=== PATIENT | female | born 2005 | race Caucasian/White ===

== ENCOUNTER 2024-11-01 14:38 | Observation (INO) | payer BC ==
[2024-11-01] MEDS ORDERED: NA CHLORIDE 0.9% 1,000 ML ONE (15:17)
[2024-11-01] MEDS ORDERED: DIPHENHYDRAMINE 50 MG/ML VIAL ONE (15:17)
[2024-11-01] MEDS ORDERED: METOCLOPRAMIDE 10 MG/2mL INJ ONE (15:17)
[2024-11-01] MEDS ORDERED: KETOROLAC 30 MG/ML INJ ONE (15:17)
[2024-11-01 15:23] LABS: Absolute Lymphocytes (CBC) 0.6 K/uL (0.7-4.9); Absolute Monocytes 1.1 K/uL (0.1-1.3); Absolute Neutrophil 20.7 K/uL (1.8-8.0); Basophils % 0.2 % (0-1.3); Hematocrit 48.6 % (36.0-45.0); Lymphocytes % 2.5 % (15.3-44.8); MCH 28.5 pg (27.0-35.0); MCHC 32.8 g/dL (32.0-36.0); MCV 86.8 fL (80-100); MPV 8.7 fL (7.6-11.3); Monocytes % 5.1 % (3.3-12.3); Neutrophils % 92.2 % (41.7-73.7); Platelets 346 thou/uL (152-406); Red Cell Distribution Width 12.9 % (12.1-15.2)
[2024-11-01 15:38] LABS: Albumin 4.3 g/dL (3.4-5.0); Albumin/Globulin Ratio 1.2 (1.1-1.8); Anion Gap 11.8 mEq/L (5.0-15.0); Bilirubin Direct 0.2 mg/dL (0-0.2); Bilirubin Indirect, Calculated 0.4 mg/dL (0.2-0.8); Bilirubin Total 0.6 mg/dL (0.2-1.0); Globulin 3.7 g/dL (2.3-3.5); Magnesium 1.9 mg/dL (1.6-2.4); Potassium 3.8 mEq/L (3.5-5.1)
[2024-11-01 15:42] LABS: Specific Gravity 1.032 (1.005-1.030)
[2024-11-01 15:44] LABS: Specific Gravity > 1.030 (1.005-1.030); Transitional Epithelial <5 /HPF (None Seen); Urine Bacteria None Seen /HPF (<20); Urine Bilirubin NEGATIVE (Negative); Urine Blood Negative (Negative); Urine Clarity Extremely Turbid (Clear); Urine Color Yellow (Yellow); Urine Culture Reflex Order NOT NEEDED; Urine Glucose NEGATIVE (Negative); Urine Ketones 1+ (Negative); Urine Microscopic Reflex YN ORDER UMIC; Urine Mucus 4+ /HPF (None Seen); Urine Nitrite NEGATIVE (Negative); Urine Protein 1+ (Negative); Urine RBC <5 /HPF (None Seen); Urine Urobilinogen Normal (Normal); Urine WBC <5 /HPF (<5)
[2024-11-01 15:57] LABS: Monoscreen NEG (NEG)
[2024-11-01 16:01] LABS: Barbiturates NEGATIVE (NEGATIVE); Benzodiazepines NEGATIVE (NEGATIVE); Cocaine NEGATIVE (NEGATIVE); METHAMPHETAM NEGATIVE (NEGATIVE); Methadone NEGATIVE (NEGATIVE); Opiates NEGATIVE (NEGATIVE); Phencyclidine NEGATIVE (NEGATIVE); THC Cannibis POSITIVE (NEGATIVE)
[2024-11-01 16:16] LABS: Band Neutrophils 4 % (0-1); Blood Morphology Comment NOT SEEN (NOT SEEN); Differential Total Cells Count 100; Lymphocytes 2 % (15-42); Monocytes 6 % (0-10); Platelet Estimate ADEQ; Segmented Neutrophils 88 % (40-80)
--- NOTE | 2024-11-01 16:16 | RAD REPORT ---
EXAMINATION: CT HEAD WITHOUT CONTRAST CLINICAL INDICATION: Female, 18 years old.headache;Dizziness TECHNIQUE: Axial CT images from the skull base to the vertex without intravenous contrast. Coronal an d sagittal reformatted images were created from the data set. One or more of the following dose reduction techniques were used: Automated exposure control, adjustment of the mA and/or kV according to patient size, and/or iterative reconstruction. Unless otherwise specified, incidental findings do not require dedicated imaging follow-up. [id number]. COMPARISON: No prior exam. FINDINGS: INTRACRANIAL: No acute intracranial hemorrhage. No hydrocephalus. No mass effect or midline shift. No significant white matter disease VASCULATURE: No visualized abnormalities in the arteries or dural venous sinuses. SCALP/SKULL: No significant soft tissue or osseous abnormalities. SINUSES: The visualized paranasal sinuses and mastoid air cells are predominantly clear. IMPRESSION: No acute intracranial abnormality.
--- NOTE | 2024-11-01 16:18 | RAD REPORT ---
EXAMINATION: CTA HEAD CLINICAL INDICATION: Female, 18 years old. headache, dizziness, vomiting TECHNIQUE: Axial CT images were obtained through the head after intravenous contrast utilizing angiog raphic protocol with 3D post-processing (maximum intensity projection images, volume rendered images and/or shaded surface rendered images). One or more of the following dose reduction technique s were used: Automated exposure control, adjustment of the mA and/or kV according to patient size, and/or iterative reconstruction. Unless otherwise specified, incidental findings do not require dedic ated imaging follow-up. COMPARISON: No prior exam. FINDINGS: ICA: The petrous, cavernous, and supraclinoid segments of the bilateral internal carotid arteries are normal. The ophthalmic artery origins are visualized and normal. The posterior communicating arteries are patent. ROCKY: Anterior cerebral arteries are normal bilaterally. The anterior communicating artery is patent. MCA: Middle cerebral arteries are normal bilaterally. PAPER RULER: Posterior cerebral arteries are normal bilaterally. Vertebrobasilar: The vertebral arteries are patent. The basilar artery is normal in appearance. 3D images confirm these findings. IMPRESSION: No occlusion, aneurysm, or hemodynamically significant stenosis identified.
[2024-11-01] MEDS ORDERED: ONDANSETRON 4 MG/2 ML VIAL ONE (18:10)
[2024-11-01 18:25] LABS: Appearance CLEAR (CLEAR); Body Fluid Source CSF; CSF Glucose 69 mg/dL (40-70); Color of Supernate Not Xanthochromic (Not Xantho); Color of fluid Colorless (COLORLESS); Tube # #2
[2024-11-01 18:26] LABS: Body Fluid WBC 1 /mm^3
[2024-11-01 18:50] LABS: Appearance CLEAR (CLEAR); Body Fluid Source CSF; Body Fluid WBC 0 /mm^3; Color of Supernate Not Xanthochromic (Not Xantho); Color of fluid Colorless (COLORLESS); Fluid Total Volume 7.5 ml; Tube # #3
--- NOTE | 2024-11-01 18:50 | EDPHYS ---
Physician Documentation [facility] Name: Clair Arita Age: 18 yrs Sex: Female : 2005 Arrival Date: 11/01/2024 Time: 14:38 Bed 6 Private MD: ED Physician Guillermo Cerrato HPI: 11/01 16:14 This 18 yrs old Female presents to ER via Ambulatory with complaints of Head pressure, sb4 Vomiting. 16:35 patient reports a headache for 3 days now. states it's worse when she stands up, better sb4 when laying down. states the pain feels like it's on the top of her head and radiates all around. she went to a freestanding ED last night, had a head CT, chest xray, EKG, viral swabs, and UPT- all negative. she was given a shot of toradol and decadron but states it did not help. she says that today her pain has persisted and now she has started experiencing nausea, vomiting, and dizziness. 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 - Infectious Disease History:: Denies. - Social history:: Smoking status: Reported history of juuling and/or vaping. ROS: 18:10 Constitutional: Negative for fever, chills, and weight loss, sb4 18:10 Abdomen/GI: Positive for nausea and vomiting, 18:10 Neuro: Positive for dizziness, headache, near syncope, 18:10 All other systems are negative, Exam: 18:10 Constitutional: This is a well developed, well nourished patient who is awake, alert, sb4 and in no acute distress. Head/Face: Normocephalic, atraumatic. Eyes: Extra-ocular motions intact. Periorbital areas with no swelling, redness, or edema. ENT: Mucous membranes moist. Cardiovascular: Regular rate and rhythm with a normal S1 and S2. Respiratory: No increased work of breathing, no retractions or nasal flaring. Abdomen/GI: Soft, non-tender, no distension. Neuro: Awake and alert, GCS 15, oriented to person, place, time, and situation. Motor strength 5/5 in all extremities. Sensory grossly intact. Vital Signs: 14:44 BP 133 / 91; Pulse 115; Resp 17; Temp 97.5(TE); Pulse Ox 98% on R/A; MAP 103 mmHg; tm6 Weight 47.63 kg; Height 5 ft. 4 in. ; Pain 8/10; 16:00 BP 121 / 77; Pulse 91; Resp 17; Pulse Ox 100% ; jj7 16:15 BP 119 / 79 Supine; Pulse 95; Resp 17; Pulse Ox 100% ; Pain 4/10; jj7 16:18 BP 124 / 85 Sitting; Pulse 99; Resp 18; Pulse Ox 100% ; jj7 16:20 BP 130 / 88 Standing; Pulse 101; Resp 20; Pulse Ox 100% ; jj7 17:22 BP 142 / 102; Pulse 96; Resp 17; Pulse Ox 100% on R/A; jj7 19:30 BP 125 / 82; Pulse 90; Resp 20; Temp 98.9; Pulse Ox 98% ; Pain 5/10; bm8 14:44 Body Mass Index 18.02 (47.63 kg, 162.56 cm) tm6 14:44 Pain Scale: Adult tm6 16:15 Pain Scale: Adult jj7 19:30 Pain Scale: Adult bm8 [place] Coma Score: 19:30 Eye Response: spontaneous(4). Motor Response: obeys commands(6). Verbal Response: bm8 oriented(5). Total: 15. Procedures: 17:46 Lumbar Puncture: Patient placed in left lateral decubitus position. Prepped with rn Betadine. Draped using sterile technique. Collected 8 ml's of clear fluid. Sample sent to lab. Puncture site dressed with band aid, Patient tolerated well. Opening pressure normal, is 10. MDM: 14:50 Medical Screening Exam initiated sb4 17:47 ED course: Patient consented for LP, stepmother in the room as well. Tolerated shift supervisor rn well, clear fluid, sent to lab. 18:50 Data reviewed: vital signs, nurses notes, lab test result(s), radiologic studies, I sb4 have discussed the patient's presentation/case with the attending Emergency Department Physician; and as a result, I will admit patient. Counseling: I had a detailed discussion with the patient and/or guardian regarding the historical points, exam findings, and any diagnostic results supporting the discharge/admit diagnosis, the presence of at least one elevated blood pressure reading (>120/80) during this emergency department visit, lab results, radiology results, the need for further work-up and treatment in the hospital. 11/01 15:07 Order name: Basic Metabolic Panel; Complete Time: 15:39 sb4 11/01 15:07 Order name: CBC with Diff; Complete Time: 16:17 sb4 11/01 15:07 Order name: Hepatic Function; Complete Time: 15:39 sb4 11/01 15:07 Order name: Magnesium; Complete Time: 15:39 sb4 11/01 15:07 Order name: UDS; Complete Time: 16:06 sb4 11/01 15:07 Order name: Urinalysis w/ reflexes; Complete Time: 15:49 sb4 11/01 15:07 Order name: [place] Screen Profile; Complete Time: 16:06 4 11/01 15:26 Order name: Test, Urine; Complete Time: 15:44 sb4 11/01 16:17 Order name: Manual Differential; Complete Time: 16:17 EDMS 11/01 17:50 Order name: Csf Culture [facility] 11/01 17:50 Order name: Fluid Cell Count,Body; Complete Time: 18:27 sb4 11/01 17:50 Order name: Spinal Fluid Profile; Complete Time: 18:51 sb4 11/01 18:50 Order name: Blood Culture Adult (2) [facility] 11/01 18:50 Order name: Lactate w/ 2H reflex if indic.; Complete Time: 08:33 sb4 11/01 18:50 Order name: CRP; Complete Time: 08:33 sb4 11/01 19:25 Order name: CBC with Automated Diff; Complete Time: 08:33 EDMS 11/01 19:25 Order name: Comprehensive Metabolic Panel; Complete Time: 08:33 EDMS 11/01 15:07 Order name: CT Head Brain wo Cont; Complete Time: 16:17 sb4 11/01 15:07 Order name: Head Angio CT; Complete Time: 16:18 sb4 11/01 15:07 Order name: Cardiac monitoring; Complete Time: 16:29 sb4 11/01 15:07 Order name: IV Saline Lock; Complete Time: 15:11 sb4 11/01 15:07 Order name: Labs collected and sent; Complete Time: 15:11 sb4 11/01 15:07 Order name: O2 Per Protocol; Complete Time: 15:11 sb4 11/01 15:07 Order name: O2 Sat Monitoring; Complete Time: 15:11 sb4 11/01 15:07 Order name: Orthostatics; Complete Time: 16:29 sb4 Administered Medications: 15:22 Drug: metoCLOPramide IVP 10 mg IVP once; over 1 to 2 minutes Route: IVP; Site: left [facility] antecubital; 16:28 Follow up: Response: Marked relief of symptoms jj7 15:30 Drug: NS 0.9% IV 1000 ml IV at 1 bolus Per protocol; to be given as a bolus over 60 jj7 minutes Route: IV; Rate: 1 bolus; Site: left antecubital; 21:02 Follow up: Response: No adverse reaction; IV Status: Completed infusion; IV Intake: bm8 1000ml 15:30 Drug: Ketorolac IVP 15 mg IVP once Route: IVP; Site: left antecubital; jj7 16:28 Follow up: Response: Marked relief of symptoms jj7 15:30 Drug: diphenhydrAMINE IVP 25 mg IVP once Route: IVP; Site: left antecubital; jj7 16:28 Follow up: Response: Marked relief of symptoms jj7 18:13 Drug: Ondansetron IVP 4 mg IVP once; over 2 minutes Route: IVP; Site: left antecubital; jj7 21:02 Follow up: Response: No adverse reaction bm8 Disposition: 11/02 07:06 Co-signature as Attending Physician, Guillermo Cerrato MD I reviewed the patient's care rn provided by the Advanced Practice Provider and agree with the diagnosis and treatment plan. Disposition Summary: 11/01/24 18:49 Hospitalization Ordered Notes: Hospitalization Status: Observation sb4 Provider: Jack Govea Location: Telemetry/MedSur (observation) sb4 Condition: Fair sb4 Problem: new sb4 Symptoms: are unchanged sb4 Bed/Room Type: Standard sb4 Room Assignment: 210(11/01/24 19:33) lg3 Diagnosis - Migraine without aura, intractable, with status migrainosus sb4 - Elevated white blood cell count sb4 Forms: - Medication Reconciliation Form sb4 - SBAR form sb4 - Leadership Thank You Letter sb4 Signatures: Dispatcher [employer] EDGuillermo Crockett MD MD rn Able, Lacie, RN RN lg3 Dima Pandya RN RN jj7 Elma Lynn, PACoronaC PADanny sb4 Raul Roche RN RN tm6 Tai Riddle RN bm8 Corrections: (The following items were deleted from the chart) 11/01 17:47 17:46 Lumbar Puncture: Patient placed in left lateral decubitus position. Prepped with rn Betadine. Draped using sterile technique. Collected 8 ml's of clear fluid. Sample sent to lab. Puncture site dressed with band aid, Patient tolerated well. rn 17:50 17:50 CSF Culture+BA.LAB.BRZ ordered. EDMS EDMS 17:50 17:50 FLUID CELL COUNT,BODY+H.LAB.BRZ ordered. EDMS EDMS 17:50 17:50 SPINAL FLUID PROFILE+LAB.LAB.BRZ ordered. EDMS EDMS 19:33 18:49 sb4 lg3
--- NOTE | 2024-11-01 18:50 | ER ---
Nurse's Notes [facility] Name: Clair Arita Age: 18 yrs Sex: Female : 2005 Arrival Date: 11/01/2024 Time: 14:38 Bed 6 Private MD: Diagnosis: Migraine without aura, intractable, with status migrainosus;Elevated white blood cell count Presentation: 11/01 14:46 Chief complaint: Patient states: headache x3 days. Went to [facility] yesterday. N/V tm6 started today. When I stand up for long periods of time I start to black out. Coronavirus screen: Client denies travel out of the [place] in the last 14 days. Ebola Screen: Patient negative for fever greater than or equal to 101.5 degrees Fahrenheit, and additional compatible Ebola Virus Disease symptoms Patient denies exposure to infectious person. Patient denies travel to an Ebola-affected area in the 21 days before illness onset. No symptoms or risks identified at this time. Initial Sepsis Screen: Does the patient meet any 2 criteria? HR > 90 bpm. Does the patient have a suspected source of infection? No. Patient's initial sepsis screen is negative. Risk Assessment: Do you want to hurt yourself or someone else? Patient reports no desire to harm self or others. Onset of symptoms was October 29, 2024. 14:46 Method Of Arrival: Ambulatory tm6 14:46 Acuity: CHRISTIN 3 tm6 Triage Assessment: 14:46 General: Appears in no apparent distress. Behavior is calm, cooperative. Pain: tm6 Complains of pain in head Pain currently is 8 out of 10 on a pain scale. Pain began 2-3 days ago. EENT: No signs and/or symptoms were reported regarding the EENT system. Neuro: Level of Consciousness is awake, alert, obeys commands, Oriented to person, place, time, situation, Reports headache x3 days. Neuro: Reports near syncope. Cardiovascular: Patient's skin is warm and dry. Respiratory: Airway is patent Respiratory effort is even, unlabored, Respiratory pattern is regular, symmetrical. GI: Reports nausea, vomiting, since today. : No signs and/or symptoms were reported regarding the genitourinary system. Derm: No signs and/or symptoms reported regarding the dermatologic system. Musculoskeletal: No signs and/or symptoms reported regarding the musculoskeletal system. 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 - Infectious Disease History:: Denies. - Social history:: Smoking status: Reported history of juuling and/or vaping. Screenin:05 [facility] ED Fall Risk Assessment (Adult) History of falling in the last 3 months, jj7 including since admission No falls in past 3 months (0 pts) Confusion or Disorientation No (0 pts) Intoxicated or Sedated No (0 pts) Impaired Gait No (0 pts) Mobility Assist Device Used No (0 pt) Altered Elimination No (0 pt) Score/Fall Risk Level 0 - 2 = Low Risk Oriented to surroundings, Maintained a safe environment, Educated pt \T\ family on fall prevention, incl call for assistance when getting out of bed, Assessed \T\ reinforced patient's understanding of fall precautions. Abuse screen: Denies threats or abuse. Nutritional screening: No deficits noted. Tuberculosis screening: No symptoms or risk factors identified. Assessment: 15:05 General: Appears in no apparent distress. comfortable, Behavior is calm, cooperative, jj7 appropriate for age. Neuro: Reports dizziness, headache TOP OF HEAD. GI: Reports nausea, vomiting. GI: Abd is soft and non tender X 4 quads. 19:30 Reassessment: Patient appears in no apparent distress at this time. Patient and/or bm8 family updated on plan of care and expected duration. Pain level reassessed. Patient is alert, oriented x 3, equal unlabored respirations, skin warm/dry/pink. Patient states feeling better. Patient states symptoms have improved. Neuro: Level of Consciousness is awake, alert, obeys commands, Oriented to person, place, time, situation, Appropriate for age Reports headache. Cardiovascular: Denies chest pain, Capillary refill < 3 seconds in bilateral fingers Patient's skin is warm and dry. Respiratory: Airway is patent Respiratory effort is even, unlabored, Respiratory pattern is regular, symmetrical. GI: No deficits noted. No signs and/or symptoms were reported involving the gastrointestinal system. GI: No signs and/or symptoms were reported involving the gastrointestinal system. : No signs and/or symptoms were reported regarding the genitourinary system. EENT: No signs and/or symptoms were reported regarding the EENT system. Derm: No signs and/or symptoms reported regarding the dermatologic system. Musculoskeletal: No signs and/or symptoms reported regarding the musculoskeletal system. Vital Signs: 14:44 BP 133 / 91; Pulse 115; Resp 17; Temp 97.5(TE); Pulse Ox 98% on R/A; MAP 103 mmHg; tm6 Weight 47.63 kg; Height 5 ft. 4 in. ; Pain 8/10; 16:00 BP 121 / 77; Pulse 91; Resp 17; Pulse Ox 100% ; jj7 16:15 BP 119 / 79 Supine; Pulse 95; Resp 17; Pulse Ox 100% ; Pain 4/10; jj7 16:18 BP 124 / 85 Sitting; Pulse 99; Resp 18; Pulse Ox 100% ; jj7 16:20 BP 130 / 88 Standing; Pulse 101; Resp 20; Pulse Ox 100% ; jj7 17:22 BP 142 / 102; Pulse 96; Resp 17; Pulse Ox 100% on R/A; jj7 19:30 BP 125 / 82; Pulse 90; Resp 20; Temp 98.9; Pulse Ox 98% ; Pain 5/10; bm8 14:44 Body Mass Index 18.02 (47.63 kg, 162.56 cm) tm6 14:44 Pain Scale: Adult tm6 16:15 Pain Scale: Adult jj7 19:30 Pain Scale: Adult bm8 [place] Coma Score: 19:30 Eye Response: spontaneous(4). Motor Response: obeys commands(6). Verbal Response: bm8 oriented(5). Total: 15. ED Course: 14:40 Patient arrived in ED. mr 14:41 Elma Lynn PA-C is PHCP. sb4 14:41 Guillermo Cerrato MD is Attending Physician. sb4 14:46 Arm band placed on right wrist. tm6 14:48 Triage completed. tm6 15:04 Inserted saline lock: 20 gauge in left antecubital area, using aseptic technique. Blood jj7 collected. Flushed with 10 mL NS. 15:05 Patient has correct armband on for positive identification. Bed in low position. Call jj7 light in reach. Adult w/ patient. Provided Education on: USE OF CALL GANT. 15:08 Jonny Thurman, RN is Primary Nurse. bp 15:11 Basic Metabolic Panel Sent. jj7 15:11 CBC with Diff Sent. jj7 15:11 Hepatic Function Sent. jj7 15:11 Magnesium Sent. jj7 15:31 UDS Sent. jj7 15:31 Urinalysis w/ reflexes Sent. jj7 16:09 CT Head Brain wo Cont In Process Unspecified. EDMS 16:[address] In Process Unspecified. EDMS 17:21 Assist provider with lumbar puncture: Set up LP tray. jj7 17:38 Assist provider with lumbar puncture: Performed by Guillermo Cerrato MD. jj7 18:06 Fluid Cell Count,Body Sent. jj7 18:06 Spinal Fluid Profile Sent. jj7 18:49 Jack Govea MD is Hospitalizing Provider. sb4 19:09 Report given to ADEBAYO RECINOS. jj7 19:30 Provided Education on: need for admission. bm8 19:30 Patient admitted, IV remains in place. bm8 Administered Medications: 15:22 Drug: metoCLOPramide IVP 10 mg IVP once; over 1 to 2 minutes Route: IVP; Site: left [facility] antecubital; 16:28 Follow up: Response: Marked relief of symptoms jj7 15:30 Drug: NS 0.9% IV 1000 ml IV at 1 bolus Per protocol; to be given as a bolus over 60 jj7 minutes Route: IV; Rate: 1 bolus; Site: left antecubital; 21:02 Follow up: Response: No adverse reaction; IV Status: Completed infusion; IV Intake: bm8 1000ml 15:30 Drug: Ketorolac IVP 15 mg IVP once Route: IVP; Site: left antecubital; jj7 16:28 Follow up: Response: Marked relief of symptoms jj7 15:30 Drug: diphenhydrAMINE IVP 25 mg IVP once Route: IVP; Site: left antecubital; jj7 16:28 Follow up: Response: Marked relief of symptoms jj7 18:13 Drug: Ondansetron IVP 4 mg IVP once; over 2 minutes Route: IVP; Site: left antecubital; jj7 21:02 Follow up: Response: No adverse reaction bm8 Medication: 15:05 VIS not applicable for this client. jj7 Intake: 21:02 IV: 1000ml; Total: 1000ml. bm8 Outcome: 18:49 Decision to Hospitalize by Provider. sb4 19:30 Admitted to Med/surg accompanied by nurse, via stretcher, room 210, bm8 19:30 Condition: stable 19:30 Instructed on the need for admit, Demonstrated understanding of instructions, follow-up care, 21:16 Patient left the ED. bm8 Signatures: Dispatcher [employer] EDMS PalaciosAlison lopes, Reg Reg mr ThurmanJonny, RN RN Dima Caraballo RN RN jElma Sawyer PA-Jude PA-Raul Silva, RN RN tm6 Tai Riddle, RN RN bm8 Corrections: (The following items were deleted from the chart) 16:30 16:00 BP 119 / 79; Pulse 95bpm; Resp 17bpm; Pulse Ox 100%; jj7 jjAna
[2024-11-01] MEDS ORDERED: ACETAMINOPHEN 500 MG TAB PO PRN (19:21)
--- NOTE | 2024-11-01 19:32 | P.HP ---
Certification for Inpatient Patient admitted to: Observation With expected LOS: <2 Midnights Practitioner: I am a practitioner with admitting privileges, knowledge of patient current condition, hospital course, and medical plan of care. Services: Services provided to patient in accordance with Admission requirements found in Title 42 Section 412.3 of the Code of Federal Regulations Patient History Date of Service: 11/01/24 Reason for admission: Nausea vomiting History of Present Illness: Patient is 18 years of age has been complaining of this back pressure in her head worse with standing up when she lies down and apparently she also passed out having some black spots and has been complaining of vomiting has been going on for the past 3 days got worse today he was treated with some steroids prior history of headaches or migraines is any fever chills - Past Medical/Surgical History Past Medical History: Reviewed- Non-Contributory Review of Systems 10-point ROS is otherwise unremarkable Physical Examination - Vital Signs Temperature: 97 F Blood Pressure: 133/91 Pulse: 115 Respirations: 17 Pulse Ox (%): 28 - Physical Exam General: Alert, In no apparent distress, Oriented x3 HEENT: Atraumatic Neck: Supple Respiratory: Clear to auscultation bilaterally Cardiovascular: No edema, Regular rate/rhythm, Normal S1 S2 Gastrointestinal: Normal bowel sounds, Soft and benign Musculoskeletal: No clubbing, No swelling Neurological: Normal speech, Normal strength at 5/5 x4 extr, Cranial nerves 3-12 intact - Studies Laboratory Data (last 24 hrs) 11/01/24 11/01/24 15:04 15:04 WBC 22.40 H Hgb 16.0 H Hct 48.6 H Plt Count 346 Sodium 140 Potassium 3.8 BUN 17 Creatinine 0.79 Glucose 109 H Magnesium 1.9 Total Bilirubin 0.6 AST 13 L ALT 17 Alkaline Phosphatase 53 Assessment and Plan - Problems (Diagnosis) (1) Nausea and vomiting Current Visit: Yes Status: Acute Plan: Patient is 18 years of age admitted with acute with headaches for the past 3 days nausea vomiting THC is positive she underwent lumbar puncture that was negative for infection history of any fever or sepsis signs all stable no prior history of migraine count is mildly elevated hemoglobin is also increased may be from her nausea and vomiting dehydration possible that she has marijuana toxicity to admit IV fluids meant of nausea and headaches stable discharge tomorrow Qualifiers: Vomiting type: unspecified Qualified Code(s): R11.2 - Nausea with vomiting, unspecified - Advance Directives Does patient have a Living Will: No Does patient have a Durable POA for Healthcare: No
[2024-11-01] MEDS: ACETAMIN/CAFFEINE/BUTALB TAB PO PRN (22:59)
[2024-11-01] MEDS: NA CHLORIDE 0.9% 1,000 ML IV SCH (23:14)
[2024-11-01 23:30] VITALS: O2SAT 98
[2024-11-02 05:40] LABS: Absolute Lymphocytes (CBC) 1.3 K/uL (0.7-4.9); Absolute Monocytes 0.8 K/uL (0.1-1.3); Absolute Neutrophil 6.4 K/uL (1.8-8.0); Basophils % 0.2 % (0-1.3); Eosinophils % 0.2 % (0-4.4); Hematocrit 38.4 % (36.0-45.0); Hemoglobin 13.2 g/dL (12.0-15.0); Lymphocytes % 14.7 % (15.3-44.8); MCH 29.5 pg (27.0-35.0); MCHC 34.4 g/dL (32.0-36.0); MCV 85.9 fL (80-100); MPV 8.5 fL (7.6-11.3); Monocytes % 9.5 % (3.3-12.3); Neutrophils % 75.4 % (41.7-73.7); Platelets 236 thou/uL (152-406); RBC Red Blood Cell Count 4.47 M/uL (3.86-4.86); Red Cell Distribution Width 12.4 % (12.1-15.2)
[2024-11-02 06:11] LABS: Albumin 2.9 g/dL (3.4-5.0); Alkaline Phosphatase 39 U/L (45-117); Anion Gap 7.2 mEq/L (5.0-15.0); BUN Blood Urea Nitrogen 16 mg/dL (7-18); Bicarbonate 24 mEq/L (21-32); Bilirubin Total 0.5 mg/dL (0.2-1.0); Globulin 2.9 g/dL (2.3-3.5); Glomerular Filtration Rate 113 ml/min (=/>90); Glucose Level 106 mg/dL (74-106); Potassium 3.2 mEq/L (3.5-5.1); Protein, Total 5.8 g/dL (6.4-8.2); Sodium Level 139 mEq/L (136-145)
[2024-11-02 06:13] LABS: ALT/SGPT < 14 U/L (13-56); AST/SGOT < 10 U/L (15-37)
--- NOTE | 2024-11-02 08:59 | P.DS ---
Admission Date: 11/01/24 Discharge Date: 11/02/24 Disposition: ROUTINE DISCHARGE Discharge Condition: GOOD Reason for Admission: Nausea vomiting Consultations: Consulted Dr. Jc with information of normal LP, CT and CTA brain, VS and History. Given additional 1L NS bolus, phenergan. He recommended f/u next week in clinic. Offered some abortive and preventive medications. Ms. Arita was given 6mg Imitrex subcutaneously. Observed for 1 hour and was cleared for discharge home. Procedures: Lumbar puncture Brief History of Present Illness: Ms. Arita is 18 years of age and has been complaining of pressure in the back of her head. She states it is worse with standing and when she lies down. She has passed out and states she had some black spots in her vision. She has also been vomiting. Her symptoms have been going on for the past 3 days. She denies prior history of headaches or migraines, any fever/chills, or ill contacts. LP performed in ED negative. Hospital Course: Ms. Arita is feeling better this am. She has been holding down clear fluids. We will replace her potassium of 3.2 and change diet to full liquids. She was encouraged to stay hydrated and avoid THC. She will be discharged today pending lunch with a prescription of fioricet prn severe headache and phenergan prn N/V. She will need to call for an appointment with Dr. Jc (Neurology), and also follow up with her PCP in one week. Avoid strenuous activity/heavy lifting for one week. No marijuana. Consulted Dr. cJ with information of normal LP, CT and CTA brain, VS and History. Ms. Arita was given an additional 1L NS bolus, phenergan. He recommended f/u next week in clinic. Offered some abortive and preventive medications. Ms. Arita was given 6mg Imitrex subcutaneously. Observed for 1 hour and was cleared for discharge home. Vital Signs/Physical Exam: Temp Pulse Resp BP Pulse Ox 97.8 F 87 16 112/59 L 95 11/02/24 04:00 11/02/24 04:00 11/02/24 04:00 11/02/24 04:00 11/02/24 04:00 General: Alert, In no apparent distress, Oriented x3, Other (thin) HEENT: Atraumatic, Normocephalic Neck: Supple Respiratory: Clear to auscultation bilaterally, Normal air movement Cardiovascular: No edema, Normal pulses, Regular rate/rhythm, Normal S1 S2 Capillary refill: <2 Seconds Gastrointestinal: Soft and benign Musculoskeletal: No clubbing, No swelling Integumentary: No rashes Neurological: Normal speech, Normal tone, Normal affect Lymphatics: No axilla or inguinal lymphadenopathy External genitalia: Deferred Rectal: Deferred Laboratory Data at Discharge: WBC 8.50 thou/uL (4.3-10.9) 11/02/24 04:46 Hgb 13.2 g/dL (12.0-15.0) D 11/02/24 04:46 Hct 38.4 % (36.0-45.0) 11/02/24 04:46 Plt Count 236 thou/uL (152-406) D 11/02/24 04:46 Sodium 139 mEq/L (136-145) 11/02/24 04:46 Potassium 3.2 mEq/L (3.5-5.1) L D 11/02/24 04:46 BUN 16 mg/dL (7-18) 11/02/24 04:46 Creatinine 0.77 mg/dL (0.55-1.02) 11/02/24 04:46 Glucose 106 mg/dL (74-106) 11/02/24 04:46 Magnesium 1.9 mg/dL (1.6-2.4) 11/01/24 15:04 Total Bilirubin 0.5 mg/dL (0.2-1.0) 11/02/24 04:46 AST < 10 U/L (15-37) L 11/02/24 04:46 ALT < 14 U/L (13-56) 11/02/24 04:46 Alkaline Phosphatase 39 U/L (45-117) L D 11/02/24 04:46 Home Medications: Acetam/Caff/Butal [Fioricet] 1 tab PO Q6H PRN #12 tab 11/02/24 Promethazine Tab [Phenergan] 25 mg PO Q6HP PRN #20 tab 11/02/24 New Medications: Acetam/Caff/Butal [Fioricet] 1 tab PO Q6H PRN #12 tab PRN Reason: Headache Promethazine Tab [Phenergan] 25 mg PO Q6HP PRN #20 tab PRN Reason: Nausea / Vomiting Physician Discharge Instructions: Ms. Arita is feeling better this am. She has been holding down clear fluids. We will replace her potassium of 3.2 and change diet to full liquids. She was encouraged to stay hydrated and avoid THC. She will be discharged today pending lunch with a prescription of fioricet prn severe headache and phenergan prn N/V. She will need to call for an appointment with Dr. Jc (Neurology), and also follow up with her PCP in one week. Avoid strenuous activity/heavy lifting for one week. No marijuana. Diet: Regular Activity: Ad ivy Followup: NONE,NONE [Primary Care Provider] -
[2024-11-02] MEDS: ONDANSETRON 4 MG/2 ML VIAL IV PRN (12:15)
[2024-11-02] MEDS: POTASSIUM 25 MEQ EFFERV TAB PO ONE ×2 (12:15→12:22)
[2024-11-02] MEDS: MORPHINE 2 MG/ML SYR IV PRN (12:32)
[2024-11-02] MEDS: PROMETHAZINE INJ 25 MG/ML AMP IV ONE (14:37)
[2024-11-02] MEDS: NA CHLORIDE 0.9% 1,000 ML IV ONE (15:05)
[2024-11-02] MEDS: SUMATRIPTAN SUCC 6MG/0.5ML VIAL SQ ONE (16:57)
[2024-11-02] MEDS: PROMETHAZINE 25 MG TABLET PO ONE (21:13)
[2024-11-02 21:17] VITALS: BP 138/96; TEMP 97.2
[2024-11-02 21:35] VITALS: BMI 18.0
== END 2024-11-02 22:10 | disposition home or self-care (01) ==
LOC: ER 14:38 → 2ND 19:21
PROVIDERS: ADMIT Internal Medicine Sleep Medicine; ATTEND Internal Medicine
DX: R51.9 Headache, unspecified (principal); R11.2 Nausea with vomiting, unspecified; F12.90 Cannabis use, unspecified, uncomplicated; Z88.5 Allergy status to narcotic agent
CPT/HCPCS: 96361; 87040 ×2; 87070; 85025 ×2; 81001; 80048; 36415 ×2; 89050 ×2; 83735; 86308; 81025; 84157; 82945; 80076; 83605; 80053; 80307; 86140; 70450; 70496; 62270; 96375; 96374; 99285; Q9967; J3030; Q0169; J2765; J1200; J2270; J2405 ×2; J7030 ×4; G0378 ×3; J2550